=== PATIENT | male | born 1990 | race Caucasian/White ===

== ENCOUNTER 2020-10-28 12:47 | Inpatient (IN) | payer BC ==
[2020-10-28] MEDS ORDERED: LIDOCAINE 1% INJ 10MG/ML (20 ML MDV) SQ ONE (13:13)
--- NOTE | 2020-10-28 13:19 | XR ---
EXAMINATION TYPE: XR chest 2V DATE OF EXAM: 10/28/2020 COMPARISON: None HISTORY: 30-year-old male pneumothorax, sent from PCP TECHNIQUE: PA and lateral views FINDINGS: The cardiomediastinal silhouette, aorta, and pulmonary vasculature are within normal limits. There is a moderate-sized pneumothorax estimated at 30% on the right. At the apex, pneumothorax measures 4.1 cm. Along the lateral margin, pneumothorax measures up to 2.2 cm. At the base, pneumothorax measures up to 1.2%. Some strandy atelectasis is noted at the right lower lung. No pleural effusion. IMPRESSION: Moderate-sized right-sided pneumothorax estimated at 30%.
--- NOTE | 2020-10-28 13:19 | ED ---
General Adult HPI - General Chief complaint: Shortness of Breath Stated complaint: Sent by PCP- pneumothorax Time Seen by Provider: 10/28/20 12:58 Source: patient, family, RN notes reviewed, old records reviewed Mode of arrival: wheelchair Limitations: no limitations - History of Present Illness Initial comments: 30-year-old male who has had cough and mild dyspnea for the past 10 days with abnormal outpatient x-ray which was performed yesterday. He was noted to have a pneumothorax on x-ray and was called by the primary care physician and sent to the emergency department for further evaluation and treatment. He states he has been treated for an aspiration pneumonia. He reports clear sputum, no fever. Patient is otherwise healthy. - Related Data Allergies Allergy/AdvReac Type Severity Reaction Status Date / Time amoxicillin Allergy Rash/Hives Verified 10/28/20 12:55 Review of Systems ROS Statement: Those systems with pertinent positive or pertinent negative responses have been documented in the HPI. ROS Other: All systems not noted in ROS Statement are negative. Past Medical History Past Medical History: No Reported History History of Any Multi-Drug Resistant Organisms: None Reported Past Surgical History: No Surgical Hx Reported Past Psychological History: Anxiety Smoking Status: Never smoker Past Alcohol Use History: None Reported Past Drug Use History: Marijuana General Exam Limitations: no limitations General appearance: alert, in no apparent distress Head exam: Present: atraumatic, normocephalic Eye exam: Present: normal appearance, PERRL ENT exam: Present: normal exam Neck exam: Present: normal inspection. Absent: tenderness, meningismus Respiratory exam: Present: decreased breath sounds (On the right). Absent: respiratory distress Cardiovascular Exam: Present: regular rate, normal rhythm GI/Abdominal exam: Present: soft. Absent: distended, tenderness, guarding Extremities exam: Present: normal inspection, normal capillary refill. Absent: pedal edema Neurological exam: Present: alert, oriented X3, CN II-XII intact. Absent: motor sensory deficit Psychiatric exam: Present: normal affect, normal mood Skin exam: Present: warm, dry, intact. Absent: cyanosis, diaphoretic Course Vital Signs 10/28/20 10/28/20 10/28/20 12:50 13:38 13:44 Temperature 97.4 F L Pulse Rate 62 75 61 Respiratory 20 18 18 Rate Blood Pressure 120/75 141/81 O2 Sat by Pulse 98 96 97 Oximetry 10/28/20 13:50 Temperature Pulse Rate 71 Respiratory 18 Rate Blood Pressure 127/83 O2 Sat by Pulse 99 Oximetry Procedures - Chest Tube Insertion Consent Obtained: written consent Side of Procedure: right Indication: Pneumothorax Placed on monitor/pulse oximetry: Yes Site Prep: Chloroprep Local Anesthesia: Lidocaine 1% Amount (mLs): 8 Insertion Site: Other (Second intercostal space, midclavicular line) Scalpel: #11 Open into Pleural Space Using: Trocar Tube Size (Mohawk): Other (11) Returns: Air Sutured in Place: No Attached to Suction: Yes Type of Suction: Pleuravac Repeat X-ray Results: Other (Pneumothorax with no midline shift, placed on suction after repeat x-ray) Patient Tolerated Procedure: well Medical Decision Making - Medical Decision Making 30-year-old male with pneumothorax, approximately 30-40%. No midline shift. Given the duration of symptoms, chest tube was placed, 11-Mohawk for event in the right anterior chest wall. Patient tolerated procedure well. Repeat x-ray shows appropriate tube placement with persistent pneumothorax. This was placed on suction and repeat x-ray will be obtained in the morning. I discussed case with Dr. Marshall who will admit with pulmonology on consult. - Lab Data Result diagrams: 10/28/20 13:29 10/28/20 13:29 Lab Results 10/28/20 10/28/20 10/28/20 Range/Units 13:29 13:29 13:29 WBC 11.3 H (3.8-10.6) k/uL RBC 5.10 (4.30-5.90) m/uL Hgb 15.0 (13.0-17.5) gm/dL Hct 45.2 (39.0-53.0) % MCV 88.7 (80.0-100.0) fL MCH 29.4 (25.0-35.0) pg MCHC 33.1 (31.0-37.0) g/dL RDW 13.1 (11.5-15.5) % Plt Count 354 (150-450) k/uL MPV 6.9 Neutrophils % 73 % Lymphocytes % 20 % Monocytes % 3 % Eosinophils % 2 % Basophils % 1 % Neutrophils # 8.2 H (1.3-7.7) k/uL Lymphocytes # 2.2 (1.0-4.8) k/uL Monocytes # 0.4 (0-1.0) k/uL Eosinophils # 0.2 (0-0.7) k/uL Basophils # 0.1 (0-0.2) k/uL PT 9.9 (9.0-12.0) sec INR 0.9 (<1.2) APTT 26.3 (22.0-30.0) sec Sodium 141 (137-145) mmol/L Potassium 4.1 (3.5-5.1) mmol/L Chloride 104 (98-107) mmol/L Carbon Dioxide 26 (22-30) mmol/L Anion Gap 11 mmol/L BUN 13 (9-20) mg/dL Creatinine 0.98 (0.66-1.25) mg/dL Est GFR (CKD-EPI)AfAm >90 (>60 ml/min/1.73 sqM) Est GFR (CKD-EPI)NonAf >90 (>60 ml/min/1.73 sqM) Glucose 93 (74-99) mg/dL Calcium 9.8 (8.4-10.2) mg/dL Total Bilirubin 0.5 (0.2-1.3) mg/dL AST 29 (17-59) U/L ALT 16 (4-49) U/L Alkaline Phosphatase 61 (38-126) U/L Total Protein 7.4 (6.3-8.2) g/dL Albumin 4.6 (3.5-5.0) g/dL Disposition Clinical Impression: Pneumothorax Disposition: ADMITTED IP TO THIS HOSP Condition: Stable Is patient prescribed a controlled substance at d/c from ED?: No Referrals: Kaushik Osullivan MD [Primary Care Provider] - 1-2 days Decision to Admit Reason: Admit from EC Decision Date: 10/28/20 Decision Time: 14:22
[2020-10-28 13:43] LABS: Basophils # (A) 0.1 k/uL (0-0.2); Basophils % (A) 1 %; Eosinophils # (A) 0.2 k/uL (0-0.7); Eosinophils % (A) 2 %; HCT 45.2 % (39.0-53.0); Lymphocytes # (A) 2.2 k/uL (1.0-4.8); Lymphocytes % (A) 20 %; MCH 29.4 pg (25.0-35.0); MCHC 33.1 g/dL (31.0-37.0); MCV 88.7 fL (80.0-100.0); Mean Platelet Volume 6.9; Monocytes # (A) 0.4 k/uL (0-1.0); Monocytes % (A) 3 %; Neutrophils # (A) 8.2 k/uL (1.3-7.7); Neutrophils % (A) 73 %; Platelet Count 354 k/uL (150-450); RDW 13.1 % (11.5-15.5); WBC 11.3 k/uL (3.8-10.6)
[2020-10-28 13:53] LABS: Potassium 4.1 mmol/L (3.5-5.1)
[2020-10-28 13:54] LABS: ALT 16 U/L (4-49); AST 29 U/L (17-59); African American GFR (CKD) >90 (>60 ml/min/1.73 sqM); Albumin 4.6 g/dL (3.5-5.0); Alkaline Phosphatase 61 U/L (38-126); Anion Gap 11 mmol/L; Blood Urea Nitrogen 13 mg/dL (9-20); Calcium 9.8 mg/dL (8.4-10.2); Carbon Dioxide 26 mmol/L (22-30); Chloride 104 mmol/L (98-107); Glucose 93 mg/dL (74-99); Non-African American GFR(CKD) >90 (>60 ml/min/1.73 sqM); Sodium 141 mmol/L (137-145); Total Bilirubin 0.5 mg/dL (0.2-1.3); Total Protein 7.4 g/dL (6.3-8.2)
[2020-10-28 14:11] LABS: INR 0.9 (<1.2); Partial Thromboplastin Time 26.3 sec (22.0-30.0); Prothrombin Time 9.9 sec (9.0-12.0)
[2020-10-28] MEDS ORDERED: KETOROLAC 15 MG/ML 1 ML VIAL ONE (14:11)
--- NOTE | 2020-10-28 14:12 | XR ---
EXAMINATION TYPE: XR chest 1V DATE OF EXAM: 10/28/2020 COMPARISON: NONE HISTORY: Pneumothorax TECHNIQUE: Single frontal view of the chest is obtained. FINDINGS: Fluoroscopy vent is seen in position and there is a right sided pneumothorax which measure s approximately 30-40%. No definite mediastinal deviation. Left lung clear. Subsegmental consolidatio n medial right lung base. IMPRESSION: Large right pneumothorax with no definite mediastinal deviation.
[2020-10-28] MEDS ORDERED: KETOROLAC 15 MG/ML 1 ML VIAL IVP STA (14:13)
[2020-10-28] MEDS ORDERED: ACETAMINOPHEN TAB 325 MG TAB PO PRN (14:16)
[2020-10-28] MEDS ORDERED: HYDROmorphone 0.5 MG/0.5 ML SYRINGE IVP PRN (14:16)
[2020-10-28] MEDS ORDERED: NALOXONE 0.4 MG/ML 1 ML VIAL IV PRN (14:16)
[2020-10-28] MEDS: KETOROLAC 15 MG/ML 1 ML VIAL IVP PRN (17:20)
[2020-10-28] MEDS: SODIUM CHLORIDE 0.9% 1,000 ML IV SCH (18:01)
--- NOTE | 2020-10-28 22:56 | P.HPIM ---
History of Present Illness H&P Date: 10/28/20 Chief Complaint: Dyspnea Patient is a 30-year-old male with a known history of anxiety, marijuana use was sent to ER by his PCP due to pneumothorax. Patient states that he has been having cough and mild dyspnea for the past 10 days and was started on antibiotic course with Levaquin. Patient had chest x-ray today by his primary care physician which showed right-sided pneumothorax. Patient was called and sent to the hospital ER. Otherwise patient denies any fever or chills. No chest pain. No prior history of emphysema or prior history of pneumothorax. Patient is o therwise healthy. Chest x-ray showed moderate sized right-sided pneumothorax estimated at 30%. Chest tube was placed in the ER. Laboratory data showed WBC 11.3 hemoglobin 14.0 and platelets 354 sodium 141 potassium 4.1 chloride 104 bicarbonate 26 BUN 39 creatinine 0.98 Coronavirus PCR not detected. Review of Systems Constitutional: Patient denies any fever or chills . No generalized weakness or weight loss. Abdomen: Patient denied nausea vomiting and diarrhea and abdominal pain. Cardiovascular: Patient denies any chest pain or short of breath no palpitations. Respiratory: Patient does have mild dyspnea and cough. No shortness of breath. No sputum production. Neurologic: Patient denied any numbness or tingling headache. Musculoskeletal: Patient denies any complaints of joint swelling or deformity. Skin: Negative Psychiatric: Negative Endocrine: No heat or cold intolerance. No recent weight gain. Genitourinary: No dysuria or hematuria. All other 14 point ROS negative except the above Past Medical History Past Medical History: No Reported History History of Any Multi-Drug Resistant Organisms: None Reported Past Surgical History: No Surgical Hx Reported Past Psychological History: Anxiety Smoking Status: Never smoker Past Alcohol Use History: None Reported Past Drug Use History: Marijuana Medications and Allergies Home Medications Medication Instructions Recorded Confirmed Type Escitalopram [Lexapro] 10 mg PO DAILY 10/28/20 10/28/20 History Levofloxacin [Levaquin] 750 mg PO DAILY 10/28/20 10/28/20 History Allergies Allergy/AdvReac Type Severity Reaction Status Date / Time amoxicillin Allergy Rash/Hives Verified 10/28/20 14:48 Physical Exam Vitals: Vital Signs Temp Pulse Pulse Resp BP BP Pulse Ox 10/28/20 16:11 98.5 F 79 18 129/75 96 10/28/20 15:41 72 18 118/89 98 10/28/20 15:00 78 18 131/78 99 10/28/20 13:50 71 18 127/83 99 10/28/20 13:44 61 18 97 10/28/20 13:38 75 18 141/81 96 10/28/20 12:50 97.4 F L 62 20 120/75 98 Intake and Output 10/28/20 10/28/20 10/28/20 06:59 14:59 22:59 Other: # Voids 1 Weight 77.111 kg 77.111 kg PHYSICAL EXAMINATION: Patient is lying in the bed comfortably, no acute distress, awake alert and oriented.. HEENT: Normocephalic. Neck is supple. Pupils reactive. Nostrils clear. Oral cavity is moist. Ears reveal no drainage. Neck reveals no JVD, carotid bruits, or thyromegaly. CHEST EXAMINATION: Trachea is central. Symmetrical expansion. Lung allison clear to auscultation and percussion. CARDIAC: Normal S1, S2 with no gallops. No murmurs ABDOMEN: Soft. Bowel sounds normal. No organomegaly. No abdominal bruits. Extremities: reveal no edema. No clubbing or cyanosis Neurologically awake, alert, oriented x3 with well-coordinated movements. No fo danica deficits noted Skin: No rash or skin lesions. Psychiatric: Coperative. Nonsuicidal Musculoskeletal: No joint swelling or deformity. Normal range of motion. Results CBC & Chem 7: 10/28/20 13:29 10/28/20 13:29 Labs: Abnormal Lab Results - Last 24 Hours (Table) 10/28/20 Range/Units 13:29 WBC 11.3 H (3.8-10.6) k/uL Neutrophils # 8.2 H (1.3-7.7) k/uL Thrombosis Risk Factor Assmnt - DVT/VTE Prophylaxis DVT/VTE Prophylaxis: Mechanical Prophylaxis ordered - Choose All That Apply Any of the Below Risk Factors Present?: Yes Each Factor Represents 1 point: Serious lung disease incl. pneumonia (< 1month) Other Risk Factors: No Other congenital or acquired thrombophilia - If yes, enter type in comment: No Thrombosis Risk Factor Assessment Total Risk Factor Score: 1 Thrombosis Risk Factor Assessment Level: Low Risk Assessment and Plan Assessment: Right-sided spontaneous pneumothorax status post chest tube placement to right anterior wall.. Recent history of cough and mild dyspnea currently on antibiotic course. Anxiety Marijuana use DVT prophylaxis with early ambulation. Plan: Patient will be continued pain management, continue with chest tube and pulmonary was consulted. Follow-up repeat chest x-ray and further recomme ndations based on clinical course.
[2020-10-29] MEDS: KETOROLAC 15 MG/ML 1 ML VIAL IVP PRN ×2 (04:23→09:26)
--- NOTE | 2020-10-29 06:05 | P.CNPUL ---
History of Present Illness Consult date: 10/29/20 Requesting physician: Elisha Marshall Reason for consult: dyspnea, hypoxemia, pneumothorax, abnormal CXR/CT Chief complaint: Shortness of breath. History of present illness: Pulmonary consult dated 10/29/2020. This is a 30-year-old male, who was sent in by his primary care physician. The patient has had apparent pneumonia recently, and was treated for that, and is been having complaints of shortness of breath and cough for about 7-10 days prior to admission. The patient had an outpatient chest x-ray which revealed a right-sided pneumothorax and he was sent into the emergency department. The patient states that he's been treated for an aspiration pneumonia by his primary. Anyway, the patient was seen in the emergency department and a Thora- vent was placed by the ER physician. Currently, the patient is resting comfortably. He's not receiving any supplemental oxygen or IV fluids. The Thora vent is connected to a Pleur-evac. There is no air leak. The patient denies any past medical history. His only ALLERGY is amoxicillin. He apparently is a nontobacco user. He does use marijuana. No surgical history noted. Labs from yesterday include a white count 11.3, hemoglobin 15, and a normal platelet count. PT, INR, and PTT are all normal. Sodium, potassium, chloride, CO2, anion gap, BUN, and creatinine are all normal. 2 chest x-rays from October 28 are reviewed. Review of Systems REVIEW OF SYSTEMS: CONSTITUTIONAL: [Negative.] NEUROLOGIC: [ Negative.] HEENT: [ Negative.] CARDIAC: [Negative.] PULMONARY: Shortness of breath. GI: [Negative.] : [Negative.] RHEUMATOLOGIC: [ Negative.] IMMUNOLOGIC: [ Negative.] ENDOCRINE: [Negative. ] DERMATOLOGIC: [Negative.] Past Medical History Past Medical History: No Reported History History of Any Multi-Drug Resistant Organisms: None Reported Past Surgical History: No Surgical Hx Reported Past Psychological History: Anxiety Smoking Status: Never smoker Past Alcohol Use History: None Reported Past Drug Use History: Marijuana Medications and Allergies Home Medications Medication Instructions Recorded Confirmed Type Escitalopram [Lexapro] 10 mg PO DAILY 10/28/20 10/28/20 History Levofloxacin [Levaquin] 750 mg PO DAILY 10/28/20 10/28/20 History Allergies Allergy/AdvReac Type Severity Reaction Status Date / Time amoxicillin Allergy Rash/Hives Verified 10/28/20 14:48 Physical Exam Osteopathic Statement: *. No significant issues noted on an osteopathic structural exam other than those noted in the History and Physical/Consult. Vitals: Vital Signs Temp Pulse Pulse Resp BP BP Pulse Ox 10/29/20 02:00 97.3 F L 63 17 106/67 98 10/28/20 19:21 98.7 F 66 16 135/80 94 L 10/28/20 16:11 98.5 F 79 18 129/75 96 10/28/20 15:41 72 18 118/89 98 10/28/20 15:00 78 18 131/78 99 10/28/20 13:50 71 18 127/83 99 10/28/20 13:44 61 18 97 10/28/20 13:38 75 18 141/81 96 10/28/20 12:50 97.4 F L 62 20 120/75 98 Intake and Output 10/28/20 10/28/20 10/29/20 14:59 22:59 06:59 Output Total 350 Balance -350 Output: Chest Tube Drainage 0 Thora-Vent Right Upper 0 Anterior Chest Urine 350 Other: Voiding Method Toilet Urinal # Voids 1 1 Weight 77.111 kg 77.111 kg No acute distress, oriented 3. No supplemental oxygen. Saturations 98%. HEENT examination is grossly unremarkable. Neck supple. Full range of motion. No adenopathy thyromegaly or neck vein distention. Cardiovascular examination reveals regular rhythm rate. S1-S2 normal. No S3 or S4. No discernible murmur noted. Heart rate 63 bpm. Lungs reveal mostly clear breath sounds. Breath sounds slightly decreased on the right. No significant wheezes, rhonchi, or crackles. Abdomen soft bowel sounds are heard. No masses or tenderness. Extremities are intact. No cyanosis clubbing or edema. Skin is without rash or lesion. Neurologic examination is brief but nonfocal. Results - Laboratory Findings CBC and BMP: 10/28/20 13:29 10/28/20 13:29 PT/INR, D-dimer PT 9.9 sec (9.0-12.0) 10/28/20 13: INR 0.9 (<1.2) 10/28/20 13:29 Abnormal lab findings: Abnormal Labs 10/28/20 13:29 WBC 11.3 H Neutrophils # 8.2 H - Diagnostic Findings Chest x-ray: image reviewed Assessment and Plan Assessment: Idiopathic spontaneous right pneumothorax, status post Thora-vent insertion. Questionable aspiration pneumonia. Plan: Plan dated 10/29/2020. The patient is seen today. He is in room 473. He is in no distress. Thora- vent is in place. A chest x-ray should be done today. If the patient still has a pneumothorax, cardiothoracic surgery should be consulted. Postplacement of the Thora-vent, there was still a 30-40% pneumothorax. The patient's in no distress. His past medical history is essentially nil. Time with Patient: Greater than 30
--- NOTE | 2020-10-29 07:30 | XR ---
EXAMINATION TYPE: XR chest 2V DATE OF EXAM: 10/29/2020 COMPARISON: 10/28/2020 HISTORY: 30-year-old male with pneumothorax TECHNIQUE: PA and lateral views FINDINGS: Right-sided thoracotomy catheter with resolution of the previous pneumothorax. Heart normal size. Aor ta and pulmonary vasculature within normal limits. No consolidation or pleural effusion. IMPRESSION: Right-sided Thoravent catheter with resolution of the previous right pneumothorax.
[2020-10-29 14:22] VITALS: BP 131/73; PULSE 58; RESP 19; TEMP 98.7
--- NOTE | 2020-10-29 14:29 | P.DS ---
Providers Date of admission: 10/28/20 14:19 Attending physician: Elisha Marshall Consults: 10/28/20 14:17 Consult Physician Routine Consulting Provider: Zane Fajardo Consult Reason/Comments: Spontaneous pneumothorax Do you want consulting provider notified?: Yes Primary care physician: Kaushik Osullivan MD Hospital Course: Patient is a 30-year-old male with a known history of anxiety, marijuana use was sent to ER by his PCP due to pneumothorax. Patient states that he has been having cough and mild dyspnea for the past 10 days and was started on antibiotic course with Levaquin. Patient had chest x-ray today by his primary care physician which showed right-sided pneumothorax. Patient was called and sent to the hospital ER. Otherwise patient denies any fever or chills. No chest pain. No prior history of emphysema or prior history of pneumothorax. Patient is otherwise healthy. Chest x-ray showed moderate sized right-sided pneumothorax estimated at 30%. Chest tube was placed in the ER. Laboratory data showed WBC 11.3 hemoglobin 14.0 and platelets 354 sodium 141 potassium 4.1 chloride 104 bicarbonate 26 BUN 39 creatinine 0.98 Coronavirus PCR not detected. 10/29/2020 Patient doesn't have any more air bubbles in the chest tube. Patient had a chest x-ray today which did not show any residual pneumothorax. As per recommendation by pulmonary at [facility], applied dressing, chest x-ray was ordered half an hour of his removal of the thoravent which diabetic doesn't appear to show any more residual pneumothorax, awaiting official read from radiologist. His chest x-ray is clear. Patient will be discharged today with instructions of returning to ER if he has chest pain or shortness of breath again. PHYSICAL EXAMINATION: GENERAL: The patient is alert and oriented x3, not in any acute distress. Well developed, well nourished. HEENT: Pupils are round and equally reacting to light. EOMI. No scleral icterus. No conjunctival pallor. Normocephalic, atraumatic. No pharyngeal erythema. No thyromegaly. CARDIOVASCULAR: S1 and S2 present. No murmurs, rubs, or gallops. PULMONARY: Chest is clear to auscultation, no wheezing or crackles. ABDOMEN: Soft, nontender, nondistended, normoactive bowel sounds. No palpable organomegaly. MUSCULOSKELETAL: No joint swelling or deformity. EXTREMITIES: No cyanosis, clubbing, or pedal edema. NEUROLOGICAL: Gross neurological examination did not reveal any focal deficits. SKIN: No rashes. Assessment and Plan Assessment: Right-sided spontaneous pneumothorax status post chest tube placement to right anterior wall.. Patient's pneumothorax cleared and Thoravent was discontinued Recent history of cough and mild dyspnea currently on antibiotic course., There is no clinical evidence of pneumonia at this time antibiotics will be discontinued although there was a concern about aspiration pneumonia. Pulmonary did not recommend any antibiotics at this time. Anxiety disorder Marijuana use Patient Condition at Discharge: Stable Plan - Discharge Summary Discharge Rx Participant: Yes New Discharge Prescriptions: No Action Escitalopram [Lexapro] 10 mg PO DAILY Levofloxacin [Levaquin] 750 mg PO DAILY Discharge Medication List Escitalopram [Lexapro] 10 mg PO DAILY 10/28/20 [History] Levofloxacin [Levaquin] 750 mg PO DAILY 10/28/20 [History] Follow up Appointment(s)/Referral(s): Kaushik Osullivan MD [Primary Care Provider] - 1-2 days Patient Instructions/Handouts: Spontaneous Pneumothorax (DC)
--- NOTE | 2020-10-29 14:36 | XR ---
EXAMINATION TYPE: XR chest 2V DATE OF EXAM: 10/29/2020 COMPARISON: NONE HISTORY: thoravent removed. Pneumothorax. TECHNIQUE: 2 views FINDINGS: Heart and mediastinum are normal. There is some minimal nodular infiltrate in the periphery of the right midlung. There is no pneumothorax. Trachea is midline. There is no pleural effusion. [place] thorax is intact. IMPRESSION: No pneumothorax. Normal heart. Minimal nodular peripheral right side pulmonary infiltrate . This could be focal atelectasis.
[2020-10-29] MEDS: SODIUM CHLORIDE 0.9% 1,000 ML IV SCH (15:08)
== END 2020-10-29 16:01 | disposition home or self-care (01) | DRG 201 ==
LOC: EC 12:47 → 4SSUR 14:19
PROVIDERS: ADMIT Internal Medicine; ATTEND Internal Medicine
PROC: 0W9930Z Drainage of Right Pleural Cavity with Drainage Device, Percutaneous Approach (ICD-10-PCS; principal; 2020-10-28)
DX: J93.83 Other pneumothorax (principal); Z20.822 Contact with and (suspected) exposure to COVID-19; R09.02 Hypoxemia; F41.9 Anxiety disorder, unspecified; Z79.899 Other long term (current) drug therapy; Z88.0 Allergy status to penicillin
CPT/HCPCS: 32551; 36415; 71045; 71046; 80053; 85025; 85610; 85730; 87635; 96372; 96374; 99285